=== PATIENT | female | born 1975 ===

== ENCOUNTER 2024-03-09 09:13 | Emergency (ER) | payer MEDICAID, SELFPAY ==
[2024-03-09] VITALS (15 sets, daily range): BP systolic 111–149; BP diastolic 77–106; PULSE 78–98; TEMP 36.8; O2SAT 95–98; BMI 41.6
--- NOTE | 2024-03-09 09:29 | CT_ITS ---
The [address] [address] Patient Name: DIMPLE MIN MRN: [id number] date: 1975 Sex: F Assigned Patient Location: ER Current Patient Location: ER Accession/Order Number: [id number] Exam Date: 03/09/2024 10:08 Report Date: 03/09/2024 11:04 At the request of: MARIANNE FOY Procedure: CT head/brain wo con EXAMINATION: CT head/brain wo con HISTORY: headache COMPARISON: No relevant comparison available. TECHNIQUE: Axial CT images were obtained without IV contrast. Dose reduction techniques were achieved by using automated exposure control and/or adjustment of mA and/or kV according to patient size and/or use of iterative reconstruction technique. FINDINGS: BRAIN: No edema, hemorrhage, mass, acute infarction, or inappropriate atrophy. CSF SPACES: No hydrocephalus, subarachnoid hemorrhage, or mass. Appropriate for age. SKULL: No fracture, mass, or other significant visible lesion. SINUSES: No significant mucosal thickening or fluid on the limited views. ORBITS: No appreciable abnormality on the limited views. OTHER: Negative CT/CT head/brain wo con IMPRESSION: 1. No abnormal or suspicious findings to account for patient's symptoms. Electronically authenticated by: CB TOMAS Date: 03/09/2024 11:04
--- NOTE | 2024-03-09 09:29 | ECG_ITS ---
The [facility] Test Date: 2024-03-09 Pat Name: DIMPLE MIN Department: Room: - Gender: Female Chemical [employer]: : 1975 Requested By: [id number] Order Number: [id number] Reading MD: DALTON GARCIA Measurements Intervals [place] Rate: 82 P: 35 [place]: 142 QRS: 55 QRSD: 88 T: 30 QT: 348 QTc: 386 Interpretive Statements 1100 Sinus rhythm 1570 with occasional ventricular premature complexes 2420 RSR (QR) in lead V1/V2, consistent with right ventricular conduction delay 9140 abnormal rhythm ECG No previous ECG available for comparison Electronically Signed On 03-10-2024 7:15:06 EDT by DALTON GARCIA
--- NOTE | 2024-03-09 09:29 | XR_ITS ---
The [address] [address] Patient Name: DIMPLE MIN MRN: [id number] date: 1975 Sex: F Assigned Patient Location: ER Current Patient Location: ER Accession/Order Number: [id number] Exam Date: 03/09/2024 10:08 Report Date: 03/09/2024 11:02 At the request of: MARIANNE FOY Procedure: XR chest 1V EXAM: XR chest 1V INDICATION: Chest pain. COMPARISON: None. TECHNIQUE: Single frontal view of the chest FINDINGS: Normal cardiomediastinal contours. No acute infiltrative process. No pleural effusion or pneumothorax. No acute osseous abnormality. XR/XR chest 1V IMPRESSION: No acute cardiopulmonary process. Electronically authenticated by: NANCY JACOBS Date: 03/09/2024 11:02
--- NOTE | 2024-03-09 09:37 | ED_ITS ---
HPI HPI - General Adult General Chief complaint: Headache Stated complaint: SWOLEN LOW EXTREMETY AND HEADACHE Time Seen by Provider: 03/09/24 09:19 Source: patient Mode of arrival: walk-in Limitations: no limitations History of Present Illness HPI narrative: The patient coming to the ER with a complaint of bilateral leg swelling that she noticed over the last few days, she mentioned that the swelling has been climbing up her leg up to the level of the knee. Associated with heaviness with walking with no difficulty breathing no cough no fever. No chest pain but the patient mentioned that she feels her heart racing sometimes. Patient denies any chest pain any abdominal pain any fever chills nausea or vomiting She did endorse this right-sided headache that she also has been having for the last 2 to 3 days. And she mentioned that this headache is constant and although she does have usually headache due to her neck pain but this is a different headache No weakness in the upper or lower extremities and no blurry vision or difficulty breathing or difficulty talking The patient is a smoker of 1 pack of cigarettes per day in addition to marijuana Related Data Previous Rx's ?Medication ?Instructions ?Recorded furosemide 20 mg tablet (Lasix) 20 mg PO DAILY #3 tabs 03/09/24 Allergies Allergy/AdvReac Type Severity Reaction Status Date / Time buprenorphine [From Butrans] Allergy Mild skin Verified 03/09/24 09:19 nalbuphine [From Nubain] Allergy Mild sob Verified 03/09/24 09:19 Opioid HPI Opioid Management Most Recent Opioid Data: No Data to Display Review of Systems ROS Status of ROS 10 or more systems reviewed and unremark able except as noted in history and below Exam Narrative Exam Narrative: Nurses notes and vital signs reviewed and patient is not hypoxic. General: Well-appearing and in no apparent distress. Skin: Warm, dry, no pallor noted. No rash. Head: Normocephalic, atraumatic. Neck: Supple, non-tender. Eye: Pupils are equal, round and EOMI. No scleral icterus. Ears, Nose, Mouth, and Throat: TM are clear, no nasal mucosal hypertrophy. Oral mucosa is moist, no posterior oropharynx erythema, uvula is mid-line Cardiovascular: Regular Rate and Rhythm without murmur, gallop or rub. Respiratory: No accessory muscle use or respiratory distress. Lungs are clear to auscultation, no wheezing, rales or rhonchi Chest Wall: no tenderness Back: No midline thoracic or lumbar vertebral tenderness. No CVA tenderness Musculoskeletal: normal ROM, no calf or popliteal tenderness, 1+ pitting edema bilaterally to the level of the knee, no tenderness on palpation and the patient have a good anterior tibial pulse with no vascular injury detected, no redness no hotness no open wounds GI: Abdomen is soft, non-distended. Normal bowel sounds. No masses appreciated. No tenderness to palpation. No rebound, guarding, or rigidity noted. Neurological: A&O x4. No cranial nerve dysfunction observed. No truncal ataxia. Moves all extremities. Sensation intact. Psychiatric: Cooperative and interactive. Normal mood and affect. Constitutional Vital Signs, click to edit/add: Last Vital Signs Temp 98.3 F 03/09/24 09:19 Pulse 88 03/09/24 10:00 Resp 13 03/09/24 10:00 BP 113/77 03/09/24 10:01 Pulse Ox 96 03/09/24 09:40 O2 Del Method Room Air 03/09/24 09:38 Course Vital Signs Vital signs: Vital Signs Temperature 98.3 F 03/09/24 09:19 Pulse Rate 98 H 03/09/24 09:19 Respiratory Rate 18 03/09/24 09:19 Blood Pressure 149/103 H 03/09/24 09:19 Pulse Oximetry 98 03/09/24 09:19 Oxygen Delivery Method Room Air 03/09/24 09:19 Temperature 98.3 F 03/09/24 09:19 Pulse Rate 88 03/09/24 10:00 Respiratory Rate 13 03/09/24 10:00 Blood Pressure 113/77 03/09/24 10:01 Pulse Oximetry 96 03/09/24 09:40 Oxygen Delivery Method Room Air 03/09/24 09:38 Medical Decision Making MDM Narrative Medical decision making narrative: The patient EKG showing sinus rhythm with a heart rate of [address] elevation or depression but the patient have 1 PVC The patient did not have any primary care doctor and she has not seen any physician for a while Right now her chronic bilateral leg edema exacerbated over the last few days, her job usually requires her to be sitting all the time and that could be causing her to have dependent edema CBC and chemistry showed no acute significant pathology The patient did not take anything for headache and she did not specify that this headache is intractable or severe She was only provided with Tylenol for the headache here with a CT head showing no acute pathology The patient x-ray of the chest showed no acute pathology as well BNP was not elevated as well as a troponin The patient was discharged home with 3 days only of Lasix with referral to primary care doctor for further evaluation for chronic issues including the bilateral leg edema, in case of worsening symptoms the patient to be coming back to the ER she also instructed on hydration The patient is to follow up with primary care physician in next 2-3 days or to return to the emergency department should any of the signs or symptoms worsen or new symptoms develop. The patient agrees with the following Diagnosis and Treatment plan and the patient will be discharged home. Lab Data Labs: Lab Results 03/09/24 Range/Units 09:51 WBC 6.2 (4.0-11.0) 10^3/uL RBC 4.68 (4.20-5.40) 10^6/uL Hgb 14.6 (12.0-16.0) g/dL Hct 43.3 (36.0-48.0) % MCV 92.5 (81.0-99.0) fL MCH 31.2 (26.7-34.0) pg MCHC 33.7 (29.9-35.2) g/dL RDW 13.3 (11.0-15.0) % Plt Count 220 (150-450) 10^3/uL MPV 9.3 L (9.5-13.5) fL Neut % (Auto) 62.6 (43.0-75.0) % Lymph % (Auto) 25.0 (20.5-60.0) % [place] % (Auto) 8.9 (1.7-12.0) % Eos % (Auto) 2.4 (0.9-7.0) % Baso % (Auto) 0.8 (0.2-2.0) % Neut # (Auto) 3.9 (1.4-6.5) 10^3/uL Lymph # (Auto) 1.6 (1.2-3.8) 10^3/uL [place] # (Auto) 0.6 (0.3-0.8) 10^3/uL Eos # (Auto) 0.2 (0.0-0.7) 10^3/uL Baso # (Auto) 0.1 (0.0-0.1) 10^3/uL Abs Immat Gran (auto) 0.02 (0.00-0.03) 10^3/uL Imm/Tot Granulo (auto) 0.3 (0.0-0.5) % PT 10.0 (9.0-11.6) sec INR 0.94 Sodium 142 (136-145) mmol/L Potassium 3.8 (3.5-5.1) mmol/L Chloride 106 (98-107) mmol/L Carbon Dioxide 25.3 (21.0-32.0) mmol/L Anion Gap 14.5 BUN 10.0 (7.0-18.0) mg/dL Creatinine 1.04 H (0.55-1.02) mg/dL Est GFR ( Amer) >60 (>=60) Est GFR (Non-Af Amer) 57 L (>=60) BUN/Creatinine Ratio 9.6 Glucose 126 H (74-106) mg/dL Calcium 9.0 (8.5-10.1) mg/dL Magnesium 2.1 (1.8-2.4) mg/dL Total Bilirubin 0.5 (0.2-1.0) mg/dL AST 23 (15-37) U/L ALT 39 (14-59) U/L Alkaline Phosphatase 104 (46-116) U/L Troponin I High Sens 5.9 (4.0-51.3) pg/mL NT-Pro-B Natriuret Pep 17.0 (<=450.0) pg/mL Total Protein 6.9 (6.4-8.2) g/dL Albumin 3.6 (3.4-5.0) g/dL Globulin 3.3 g/dL Albumin/Globulin Ratio 1.1 Discharge Plan Discharge Stand Alone Forms: Portal Instructions Chief Complaint: Headache Clinical Impression: Bilateral lower extremity edema Headache Qualifiers: Headache type: tension-type Headache chronicity pattern: acute headache Intractability: not intractable Qualified Code(s): G44.209 - Tension-type headache, unspecified, not intractable Patient Disposition: Home, Self-Care Time of Disposition Decision: 11:22 Condition: Good Prescriptions / Home Meds: New furosemide [Lasix] 20 mg tablet 20 mg PO DAILY Qty: 3 0RF Print Language: Peruvian Instructions: Leg Edema (ED) Referrals: Physician,Non-Staff, MD [Primary Care Provider] - 1 week
[2024-03-09 10:02] LABS: Basophils Absolute Auto 0.1 10^3/uL (0.0-0.1); Basophils Percent Auto 0.8 % (0.2-2.0); Eosinophils Absolute Auto 0.2 10^3/uL (0.0-0.7); Eosinophils Percent Auto 2.4 % (0.9-7.0); Hematocrit 43.3 % (36.0-48.0); Hemoglobin 14.6 g/dL (12.0-16.0); Immature Granulocytes Abs Auto 0.02 10^3/uL (0.00-0.03); Immature Granulocytes Pct Auto 0.3 % (0.0-0.5); Lymphocytes Absolute Auto 1.6 10^3/uL (1.2-3.8); Mean Corpuscular HGB Conc 33.7 g/dL (29.9-35.2); Mean Corpuscular Hemoglobin 31.2 pg (26.7-34.0); Mean Corpuscular Volume 92.5 fL (81.0-99.0); Mean Platelet Volume 9.3 fL (9.5-13.5); Monocytes Absolute Auto 0.6 10^3/uL (0.3-0.8); Monocytes Percent Auto 8.9 % (1.7-12.0); Neutrophils Absolute Auto 3.9 10^3/uL (1.4-6.5); Neutrophils Percent Auto 62.6 % (43.0-75.0); Platelet Count 220 10^3/uL (150-450); Red Blood Count 4.68 10^6/uL (4.20-5.40); Red Cell Distribution Width 13.3 % (11.0-15.0); White Blood Count 6.2 10^3/uL (4.0-11.0)
[2024-03-09 10:19] LABS: Alanine Aminotransferase 39 U/L (14-59); Albumin Globulin Ratio 1.1; Albumin Level 3.6 g/dL (3.4-5.0); Alkaline Phosphatase 104 U/L (46-116); Anion Gap 14.5; Aspartate Amino Transferase 23 U/L (15-37); BUN Creatinine Ratio 9.6; Bilirubin Total 0.5 mg/dL (0.2-1.0); Carbon Dioxide 25.3 mmol/L (21.0-32.0); Chloride 106 mmol/L (98-107); Estimated GFR (African America >60 (>=60); Estimated GFR (Non-African Ame 57 (>=60); Globulin 3.3 g/dL; Glucose 126 mg/dL (74-106); Magnesium 2.1 mg/dL (1.8-2.4); Potassium 3.8 mmol/L (3.5-5.1); Sodium 142 mmol/L (136-145); Total Protein 6.9 g/dL (6.4-8.2); Troponin I High Sensitivity 5.9 pg/mL (4.0-51.3)
[2024-03-09 10:20] LABS: INR 0.94
[2024-03-09] MEDS: ACETAMINOPHEN 325 MG TABLET 650 MG PO (10:51)
== END 2024-03-09 11:32 | disposition home or self-care (01) ==
PROVIDERS: Emergency Provider Emergency Medicine
DX: G44.209 Tension-type headache, unspecified, not intractable (principal); R60.0 Localized edema; F17.210 Nicotine dependence, cigarettes, uncomplicated
CPT/HCPCS: 36415; 70450; 71045; 80053; 83735; 83880; 84484; 85025; 85610; 93005; 99285